=== PATIENT | female | born 1995 | race Caucasian/White ===

== ENCOUNTER 2017-07-10 10:48 | Inpatient (IN) | payer MEDICAID, OTHER, SELFPAY ==
[2017-07-10 12:10] VITALS: BMI 31.4
[2017-07-10] MEDS ORDERED: Lidocaine 1% (PF) 30 ML VIAL SC PRN (13:26)
[2017-07-10] MEDS ORDERED: Ibuprofen 800 MG TAB PO PRN (13:26)
[2017-07-10] MEDS ORDERED: Ondansetron HCl/PF 4 MG/2 ML Vial IVP PRN ×4 (13:26→19:47)
[2017-07-10] MEDS ORDERED: LR / Pitocin 40 units/1000 ml 1,000 ML IV PRN (13:26)
[2017-07-10] MEDS ORDERED: Promethazine HCl 25 MG/ML VIAL IM PRN ×2 (13:26→16:25)
[2017-07-10] MEDS ORDERED: Lactated Ringer's 1,000 ML IV SCH ×2 (13:30→19:47)
[2017-07-10 13:33] LABS: Amnisure Test RUPTURE DETECTED (No Rupture)
[2017-07-10 14:10] LABS: Hematocrit 34.1 % (36.0-47.0); Mean Platelet Volume 6.4 fL (7.4-10.4); Red Blood Cell (RBC) Count 3.64 mill/uL (4.00-5.20); White Blood Cell (WBC) Count 4.8 thou/uL (4.8-10.8)
[2017-07-10] MEDS ORDERED: Bicitra 30 ML UDCUP ONE (15:00)
[2017-07-10] MEDS ORDERED: CEFAZOLIN/Water 2 GM/20 ML SYRINGE ONE (15:00)
--- NOTE | 2017-07-10 15:23 | ULT ---
BIOPHYSICAL PROFILE: Date: 07/10/17 HISTORY: 21-year-old female for decreased movement. FINDINGS: Single viable intrauterine fetus in vertex presentation. Placenta is anterior. heart rate is 1 69 beats/minute. ENEIDA is 12.5 cm. tone, breathing, movement, and amniotic fluid are evaluated. biophysical pro file score is 8/8, normal. IMPRESSION: Normal biophysical profile score of 8/8. POS: THOMAS
[2017-07-10] MEDS ORDERED: Ondansetron HCl/PF 4 MG/2 ML Vial ONE (15:34)
[2017-07-10] MEDS ORDERED: Promethazine HCl 25 MG SUPP PR PRN (16:25)
[2017-07-10] MEDS ORDERED: diphenhydrAMINE 50 MG/ML VIAL IVP PRN (16:25)
[2017-07-10] MEDS ORDERED: Naloxone HCl 0.4 mg/ml Vial IV PRN (16:25)
[2017-07-10] MEDS ORDERED: Naloxone HCl 0.4 mg/ml Vial IVP PRN ×2 (16:25)
[2017-07-10] MEDS ORDERED: HYDROmorphone 2 MG/ML VIAL SLOW IVP PRN (16:25)
[2017-07-10] MEDS ORDERED: Eucerin (Mineral Oil/Petrolatum,White) 30 gm Jar TOP PRN (16:25)
[2017-07-10] MEDS ORDERED: Meperidine HCl/PF 25 MG/ML VIAL SLOW IVP PRN (16:25)
[2017-07-10] MEDS ORDERED: Acetaminophen 1,000 MG in Premix Bag 1 BAG IVPB PRN (16:26)
[2017-07-10] MEDS ORDERED: Communication Order-Pharmacy FS SCH (16:30)
[2017-07-10] MEDS ORDERED: Ketorolac Tromethamine 30 MG/ML VIAL IVP SCH (16:30)
[2017-07-10] MEDS ORDERED: Oxytocin 10 UNITS/ML VIAL ONE (16:52)
[2017-07-10] MEDS ORDERED: Meperidine HCl/PF 25 MG/ML VIAL ONE (18:01)
[2017-07-10] MEDS: Ketorolac Tromethamine 30 MG/ML VIAL IVP SCH ×2 (18:08→22:33)
[2017-07-10] MEDS ORDERED: diphenhydrAMINE 50 MG/ML VIAL ONE (18:15)
[2017-07-10] MEDS ORDERED: Adacel (T-DAP) 0.5 ML VIAL IM ONE (19:47)
[2017-07-10] MEDS ORDERED: Acetaminophen 325 MG TAB PO PRN (19:47)
[2017-07-10] MEDS ORDERED: Lanolin Ointment 7 GM TUBE TOP PRN (19:47)
[2017-07-10] MEDS ORDERED: FLU VACC QS2017-18 36 mo. & older 0.5 ML SYRINGE IM ONE (21:00)
[2017-07-10] MEDS: Ibuprofen 800 MG TAB PO SCH (21:23)
[2017-07-10] MEDS: Docusate (Surfak) 240 MG CAP PO SCH (21:27)
[2017-07-10] MEDS ORDERED: LR / Pitocin 40 units/1000 ml 1,000 ML ONE (22:32)
--- NOTE | 2017-07-11 05:25 | PDOC.PP ---
Post Progress Note Post Day #: 1 after repeat LTCS PO intake tolerated: yes Ambulation: no Vital Signs (12 hours) Temp Pulse Resp BP Pulse Ox 07/11/17 04:20 98.3 F 104 H 20 100/50 L 07/10/17 23:30 98.5 F 103 H 20 114/58 L 97 07/10/17 21:25 99 20 114/58 L 07/10/17 19:50 98.7 F 92 20 123/73 Weight Weight 65.771 kg Result Diagrams: 07/10/17 14:01 Additional Labs: Post Labs Blood Type O POSITIVE 07/10/17 14:01 Hep Bs Antigen Non-Reactive S/CO (NonReactive) 07/10/17 14:01 (1) Status post delivery Code(s): Z98.891 - HISTORY OF UTERINE SCAR FROM PREVIOUS SURGERY Status: Acute - Assessment/Plan 21 yo -->2 delivered viable M at 1644 on 07/10 via repeat LTCS 1. S/p LTCS - routine care - morning H/H pending - encourage ambulation today - pain well controlled - likely discharge tomorrow
[2017-07-11 05:28] LABS: Hematocrit 30.4 % (36.0-47.0); Mean Platelet Volume 6.3 fL (7.4-10.4); Red Blood Cell (RBC) Count 3.23 mill/uL (4.00-5.20); White Blood Cell (WBC) Count 9.2 thou/uL (4.8-10.8)
[2017-07-11] MEDS: Ibuprofen 800 MG TAB PO SCH ×3 (06:06→21:11)
[2017-07-11] MEDS: Ketorolac Tromethamine 30 MG/ML VIAL IVP SCH ×3 (06:35→16:47)
[2017-07-11] MEDS: Prenatal Vitamin 1 TAB PO SCH (07:16)
[2017-07-11] MEDS: Docusate (Surfak) 240 MG CAP PO SCH ×2 (07:16→21:11)
--- NOTE | 2017-07-11 07:52 | PDOC.PP ---
Post Progress Note Post Day #: 2 Subjective: Did well overnight. Nursing with some concerns about her co-sleeping and not seeming to always feed the baby at their prompting, though baby has gained weight since yesterday. Pain well controlled, no discharge from wound. PO intake tolerated: yes Flatus: no Ambulation: no Vital Signs (12 hours) Temp Pulse Resp BP Pulse Ox 07/11/17 07:35 98.7 F 96 18 07/11/17 07:25 98.7 F 96 18 109/61 07/11/17 04:20 98.3 F 104 H 20 100/50 L 07/10/17 23:30 98.5 F 103 H 20 114/58 L 97 07/10/17 21:25 99 20 114/58 L Weight Weight 65.771 kg - Physical Examination General: NAD Cardiovascular: no m/r/g, RRR Respiratory: clear to auscultation bilaterally, non-labored breathing Abdominal: + bowel sounds, lochia, no distention, appropriately TTP Fundus firm & at: deferred Extremities: negative homans (B) Skin: CS incision dry & intact, no rash Neurological: no gross focal deficits Psychiatric: A&Ox3, normal affect Result Diagrams: 07/11/17 05:10 Additional Labs: Post Labs Blood Type O POSITIVE 07/10/17 14:01 Hep Bs Antigen Non-Reactive S/CO (NonReactive) 07/10/17 14:01 (1) Status post delivery Code(s): Z98.891 - HISTORY OF UTERINE SCAR FROM PREVIOUS SURGERY Status: Acute Comment: Doing well post-op. Incision looks look, pressure dressing removed overnight. Pain well controlled. Advised to try ambulating some today , continue to encourage eating and drinking normally. Likely home tomorrow. <Dillon Bales - Last Filed: 07/11/17 07:50> Vital Signs (12 hours) Temp Pulse Resp BP 07/11/17 12:05 98.5 F 86 20 103/55 L 07/11/17 12:00 98.7 F 96 18 07/11/17 07:35 98.7 F 96 18 07/11/17 07:25 98.7 F 96 18 109/61 07/11/17 04:20 98.3 F 104 H 20 100/50 L Weight Weight 65.771 kg Result Diagrams: 07/11/17 05:10 Additional Labs: Post Labs Blood Type O POSITIVE 07/10/17 14:01 Hep Bs Antigen Non-Reactive S/CO (NonReactive) 07/10/17 14:01 <Corrine Mojica - Last Filed: 07/11/17 14:59> Attending Addendum - Attending Addendum I personally evaluated the patient and discussed the management with Dr. Richardson on 07/11/17. I agree with the History, Examination, Assessment and Plan documented above with any addition or exceptions noted below. Patient doing well, pain well controlled. Ambulating and tolerating full PO. Incision healing well. Educating on feeding more frequently overnight and the dangers of co-sleeping. Discharge home tomorrow. <Corrine Mojica - Last Filed: 07/11/17 14:59>
[2017-07-11] MEDS ORDERED: FLU VACC QS2017-18 36 mo. & older 0.5 ML SYRINGE IM ONE (09:00)
[2017-07-11] MEDS: HYDROcodone/Acetaminophen 5/325 mg Tablet PO PRN ×2 (19:13→23:42)
[2017-07-12] MEDS: Ibuprofen 800 MG TAB PO SCH ×2 (06:08→13:07)
--- NOTE | 2017-07-12 06:15 | OP-2 ---
DATE OF PROCEDURE: 07/10/2017 RESIDENT SURGEON: Dillon Bales M.D. EGG PACKER SURGEON: Jona Wilkerson M.D. ATTENDING PHYSICIAN: Corrine Mojica D.O. PROCEDURE PERFORMED: Repeat low transverse section with vertical skin incision. PREOPERATIVE DIAGNOSES: 1. Term intrauterine . 2. Prior x1 with vertical skin incision and unknown uterine scar POSTOPERATIVE DIAGNOSES: 1. Term intrauterine , delivered. 2. Prior x1. ANESTHESIA: Spinal. INDICATION: The patient is a 21-year-old G2, P1, female at 40.4 weeks gestation who presented for repeat scheduled . PROCEDURE IN DETAIL: After risks, benefits, and alternatives were explained, the patient gave informed consent. Preoperative antibiotics included cefazolin 2 grams. The patient was taken to the operating room where spinal anesthesia was initiated. She was placed in the supine position with a left tilt and prepped and draped in usual sterile fashion. A vertical skin incision was made with scalpel and carried down to level of the fascia, which was sharply nicked. The recti were divided digitally and retracted manually. The peritoneum was entered bluntly and retracted manually. Bladder blade was placed. Bladder flap was created using Metzenbaum scissors. A low transverse score was made with scalpel and the uterus was entered in the midline with scalpel, meconium stained fluid was seen. Hysterotomy was extended manually. The infant was noted to be in vertex, and was easily delivered by fundal pressure. Mouth and nares were bulb suctioned. Cord was clamped and cut, and grossly normal male was handed to waiting nurse. Cord blood was obtained. Placenta was manually extracted, found to be intact with three-vessel cord and discarded. The uterus was externalized and endometrium was curetted with dry lap. Bladder blade was replaced and the uterus was closed with a running and locking 1 Monocryl suture followed by 2 [id number] with a 1 Monocryl suture as well to control bleeding. Following that, hemostasis was noted. The abdomen was irrigated with saline and suctioned free of clots. Uterus was internalized and hysterotomy was again noted to be hemostatic. Peritoneum was closed with a running nonlocking 3-0 Vicryl. Fascia was closed with running nonlocking 0 PDS suture. Subcutaneous tissues were irrigated and there were no bleeders. Subcutaneous tissue was then closed with 3-0 Vicryl suture. Skin was approximated with justin and a pressure dressing was placed. All counts were correct. The patient tolerated the procedure well and was taken to the recovery room in stable condition. ESTIMATED BLOOD LOSS: 600 mL. COMPLICATIONS: None. SPECIMENS: Cord blood sent to lab for blood type. FINDINGS: Grossly normal male infant with Apgars of 8 and 9. Grossly normal placenta with three-vessel cord discarded. DRAINS: Chaudhry to gravity draining clear urine. MTDD
[2017-07-12] MEDS: Ketorolac Tromethamine 30 MG/ML VIAL IVP SCH (06:18)
[2017-07-12] MEDS: Prenatal Vitamin 1 TAB PO SCH (08:01)
[2017-07-12] MEDS: HYDROcodone/Acetaminophen 5/325 mg Tablet PO PRN (08:01)
[2017-07-12] MEDS: Docusate (Surfak) 240 MG CAP PO SCH (08:02)
[2017-07-12 08:53] VITALS: BP 117/56; TEMP 97.9
--- NOTE | 2017-07-12 09:01 | PDOC.PP ---
Post Progress Note Post Day #: 2 Subjective: Patient is doing well this morning. She is up walking around and dressed. She complains of moderate pain at incision site. Otherwise is eating, drinking, and passing gas. PO intake tolerated: yes Flatus: yes Ambulation: yes Vital Signs (12 hours) Temp Pulse Resp BP BP 07/12/17 07:45 97.9 F 91 16 117/56 L 07/12/17 00:00 97.8 F 97 20 105/59 L Weight Weight 65.771 kg - Physical Examination General: NAD Cardiovascular: no m/r/g, RRR Respiratory: clear to auscultation bilaterally Abdominal: + bowel sounds, lochia, no distention, appropriately TTP Fundus firm & at: umbilicus Extremities: negative homans (B) Skin: CS incision dry & intact, no rash Neurological: no gross focal deficits Psychiatric: A&Ox3, normal affect Result Diagrams: 07/11/17 05:10 Additional Labs: Post Labs Blood Type O POSITIVE 07/10/17 14:01 Hep Bs Antigen Non-Reactive S/CO (NonReactive) 07/10/17 14:01 (1) Status post delivery Code(s): Z98.891 - HISTORY OF UTERINE SCAR FROM PREVIOUS SURGERY Status: Acute Comment: Doing well post-op. Incision looks good, minimal oozing. Pain well controlled. Discharge home today. <Mirta Richardson - Last Filed: 07/12/17 08:56> Vital Signs (12 hours) Temp Pulse Resp BP BP 07/12/17 07:45 97.9 F 91 16 117/56 L 07/12/17 00:00 97.8 F 97 20 105/59 L Weight Weight 65.771 kg Result Diagrams: 07/11/17 05:10 Additional Labs: Post Labs Blood Type O POSITIVE 07/10/17 14:01 Hep Bs Antigen Non-Reactive S/CO (NonReactive) 07/10/17 14:01 <Corrine Mojica - Last Filed: 07/12/17 10:16> Attending Addendum - Attending Addendum I personally evaluated the patient and discussed the management with Dr. Richardson on 07/12/17. I agree with the History, Examination, Assessment and Plan documented above with any addition or exceptions noted below. Patient doing very well. Pain controlled, ambulating, tolerating PO, passing gas. All questions addressed today. Discharge home. <Corrine Mojica - Last Filed: 07/12/17 10:16>
== END 2017-07-12 13:20 | disposition home or self-care (01) | DRG 766 ==
LOC: L&D/OP 10:48 → L&D 12:53 → 3SW 19:42
PROVIDERS: ADMIT Family Medicine; ATTEND Family Medicine
PROC: 10D00Z1 Extraction of Products of Conception, Low, Open Approach (ICD-10-PCS; principal; 2017-07-10)
DX: O34.211 Maternal care for low transverse scar from previous cesarean delivery (principal); D64.9 Anemia, unspecified; Z23 Encounter for immunization; Z37.0 Single live birth; Z3A.40 40 weeks gestation of pregnancy; O99.02 Anemia complicating childbirth
CPT/HCPCS: 36415; 76819; 84112; 85027; 86780; 86850; 86900; 86901; 87340; 90471; 90682; 90715; G0008; J1200; J1885; J2175; J2310; J2405; J2590; Q2036